=== PATIENT | male | born 2000 | race Caucasian/White ===

== ENCOUNTER 2024-02-23 22:19 | Emergency (ER) | payer SELFPAY ==
[2024-02-23 22:20] VITALS: BP 130/84; PULSE 86; RESP 18; TEMP 37; O2SAT 99; BMI 22.6
--- NOTE | 2024-02-23 22:33 | ED_ITS ---
Discharge Plan Disposition Patient Disposition: Home, Self-Care Referrals Follow up/Referrals: Provider,Referral, [Primary Care Provider] - See instructions Activity Restrictions/Add. Instructions Additional Instructions/Restrictions: Please use erythromycin ointment as discussed. Please follow-up with an eye doctor.. Please return to the emergency department if you develop any new or worsening symptoms or become concerned for your health. Clinical Impressions Clinical Impression: Corneal abrasion Qualifiers: Encounter type: initial encounter Laterality: right Qualified Code(s): S05.01XA - Injury of conjunctiva and corneal abrasion without foreign body, right eye, initial encounter Print Language Print Language: Greenlandic Discharge ED Provider: Edwardo Coronado General Adult HPI <Weston Cedeno MD - Last Filed: 02/23/24 22:42> General Chief complaint: Eye Problems Stated complaint: AO 02/22/24 1430 FB right eye Time Seen by Provider: 02/23/24 22:33 History of Present Illness HPI narrative: Patient is a 23-year-old with no past medical history presenting for right eye pain. Patient said that yesterday he was using a nail gun and felt a piece of the copper from one of the nails hit him in the right eye. Patient said when he went home he tried to get all the pieces out with a Q-tip but still feels like he has a foreign body in his eye. Patient said that he has photophobia when he looks into the light and has some blurry vision. Patient does not wear contacts, has been afebrile, denies other injury and said that his left eye has no pain or foreign body sensation. Related Data Allergies Allergy/AdvReac Type Severity Reaction Status Date / Time No Known Allergies Allergy Verified 02/23/24 22:44 PFSH <Weston Cedeno MD - Last Filed: 02/23/24 22:42> [facility] Disclaimer: The information contained in this section may have been updated after the patient was seen, as this information can be updated by other users. Social History Smoking Status: Current every day smoker alcohol intake: never current occupational status: employed Travel in the last 8 weeks: None <Edwardo Coronado MD - Last Filed: 02/24/24 01:25> ROS Obtained: Yes All systems reviewed & no additional complaints except as documented Physical Exam <Edwardo Coronado MD - Last Filed: 02/24/24 01:25> General General appearance: alert and in no apparent distress Head Head exam: atraumatic and normocephalic Eye Eye exam: Present PERRL, EOMI and conjunctival injection (No obvious corneal foreign body noted prior to staining. After staining there is an area of fluorescein uptake over the cornea, negative Jany sign, no obvious corneal foreign body) ENT ENT exam: Present normal oropharynx and normal external ear exam Neck Neck exam: Present normal inspection and full ROM Chest Chest inspection: Present normal inspection and symmetric chest wall rise; Absent tenderness Respiratory Respiratory exam: Present normal lung sounds bilaterally; Absent respiratory distress Cardiovascular Cardiovascular exam: Present regular rate and normal rhythm Abdominal Exam Abdominal exam: Present soft; Absent distention, tenderness or guarding Extremities Exam Extremities exam: Present normal inspection; Absent edema or joint swelling Back Exam Back exam: Present normal inspection; Absent tenderness Neurological Exam Neurological exam: Present alert and oriented X3; Absent motor sensory deficit Psychiatric Psychiatric exam: Present normal affect and normal mood Skin Skin exam: Present warm, dry and normal color Lymphatic Lymphatic Findings: no adenopathy Medical Decision Making <Weston Cedeno MD - Last Filed: 02/23/24 22:42> Medical Records Screening: Per USPSTF and CDC recommendations, given the prevalence of disease in our region, it is our hospital?s policy to screen for HIV and viral Hepatitis for all patients aged 18 and over and those with ongoing risk factors. Vital Signs: 02/23/24 22:20 02/23/24 23:34 Temperature 98.6 F 98.2 F Temperature Source Oral Oral Pulse Rate 61 Pulse Rate [Left] 86 Respiratory Rate 18 16 Blood Pressure 121/72 Blood Pressure [Right Arm] 130/84 Blood Pressure Mean [Right Arm] 99 02 Sat by Pulse Oximetry 99 Oxygen Delivery Method Room Air Room Air Orders (Tests/Meds): ED MEDICATIONS Discontinued Medications Generic Name Dose Route Start Last Admin Trade Name Freq PRN Reason Stop Dose Admin Fluorescein Sodium 1 mg 02/23/24 22:41 Fluorescein Sodium 1mg Strip OP 02/23/24 22:42 ONCE ONE Tetracaine HCl 0 ml 02/23/24 22:41 Tetracaine 0.5% Opth Lilliam 15ml OP 02/23/24 22:42 ONCE ONE <Edwardo Coronado MD - Last Filed: 02/24/24 01:25> Medical Records Medical records reviewed: Yes I reviewed the patient's medical records. Ashwin Inquiry Pt receiving controlled substance: No Ashwin was queried for this patient: No Vital Signs: 02/23/24 22:20 02/23/24 23:34 Temperature 98.6 F 98.2 F Temperature Source Oral Oral Pulse Rate 61 Pulse Rate [Left] 86 Respiratory Rate 18 16 Blood Pressure 121/72 Blood Pressure [Right Arm] 130/84 Blood Pressure Mean [Right Arm] 99 02 Sat by Pulse Oximetry 99 Oxygen Delivery Method Room Air Room Air Lab Data Lab results reviewed: Yes I reviewed the patient's lab results. Orders (Tests/Meds): ED MEDICATIONS Discontinued Medications Generic Name Dose Route Start Last Admin Trade Name Freq PRN Reason Stop Dose Admin Fluorescein Sodium 1 mg 02/23/24 22:41 Fluorescein Sodium 1mg Strip OP 02/23/24 22:42 ONCE ONE Tetracaine HCl 0 ml 02/23/24 22:41 Tetracaine 0.5% Opth Lilliam 15ml OP 02/23/24 22:42 ONCE ONE Medical Decision Narrative: 23-year-old male without significant past medical history presents for concern for right eye foreign body. Yesterday. He washed it out and used a Q-tip to get it out but he is concerned it could still be there, he is still having eye pain.. History was obtained via interactive discussion with patient. On arrival, patient is [afebrile, hemodynamically stable, satting appropriately, alert, oriented x4, GCS 15], moving all extremities spontaneously. Full physical exam performed and significant for eye findings as above, no obvious foreign body, stain consistent with corneal abrasion. Differential includes but is not limited to ocular foreign body, corneal foreign body, corneal abrasion, corneal ulcer. Patient was given tetracaine, fluorescein stained, and given erythromycin ointment for treatment of corneal abrasion. Patient was given instructions regarding symptomatic care and encouraged follow-up with eye doctor, especially if symptoms do not rapidly improve. Procedures <Edwardo Coronado MD - Last Filed: 02/24/24 01:25> Risk/Benefits of Procedure(s) Were Explained: Yes Critical Care <Edwardo Coronado MD - Last Filed: 02/24/24 01:25> Critical Care Time Critical Care Time: No
[2024-02-23 23:34] VITALS: BP 121/72; PULSE 61; RESP 16; TEMP 36.8; O2SAT 99
== END 2024-02-23 23:40 | disposition home or self-care (01) ==
PROVIDERS: Emergency Provider Emergency Medicine
DX: S05.01XA Injury of conjunctiva and corneal abrasion without foreign body, right eye, initial encounter (principal); H57.11 Ocular pain, right eye; H53.149 Visual discomfort, unspecified; X58.XXXA Exposure to other specified factors, initial encounter; Y93.9 Activity, unspecified
CPT/HCPCS: 99283

== ENCOUNTER 2024-04-26 09:17 | Emergency (ER) | payer OTHER, SELFPAY ==
[2024-04-26 09:18] VITALS: BP 142/86; PULSE 83; RESP 16; TEMP 36.9; O2SAT 100; BMI 23.3
[2024-04-26 09:30] VITALS: BP 133/83; PULSE 86; O2SAT 100
[2024-04-26] MEDS: IBUPROFEN 600 MG TABLET PO (09:30)
[2024-04-26] MEDS: ACETAMINOPHEN 500MG TAB 1000 MG PO (09:30)
[2024-04-26] MEDS: DEXAMETHASONE 4MG TABLET 10 MG PO (09:30)
[2024-04-26] MEDS: ONDANSETRON 4MG ODT 4 MG SL (09:30)
--- NOTE | 2024-04-26 09:37 | ED_ITS ---
Discharge Plan Disposition Patient Disposition: Eloped Chief Complaint: Upper Respiratory Infection Prescriptions Prescriptions: No Action No Known Home Medications Referrals Follow up/Referrals: Provider,MD Tj [Primary Care Provider] - See instructions Clinical Impressions Clinical Impression: Eloped from emergency department, Influenza A Print Language Print Language: Taiwanese Discharge ED Provider: Pa Charles General Adult HPI General Chief complaint: Upper Respiratory Infection Stated complaint: cough cold sweats vomiting diarriah Time Seen by Provider: 04/26/24 09:18 Mode of Arrival: Ambulatory Source of Information: Patient Limitations: No Limitations Description of Symptoms (Recalled from ER Triage Doc. by RN): Patient reports nausea, vomiting and diarrhea for two days. History of Present Illness HPI narrative: Please note that above description of symptoms, in this electronic medical record under categorization of recalled from ER triage doctor by RN are reflective of an initial nursing assessment, however, is not reflective of my full history and physical exam that was personally taken and clarified. Consequentially, this preceding description of symptoms, which may include the patient's categorized chief complaint in the EMR, do not reflect my personal clinical impression, and the ultimate description of history of present illness and patient stated complaints should be deferred to this section of the note. Unless stated otherwise or congruent with this section of the note, additional signs, symptoms, or incongruence should be interpreted as inaccurate with my clinical impression. Related Data Home Medications ?Medication ?Instructions ?Recorded ?Confirmed No Known Home Medications 04/26/24 04/26/24 Allergies Allergy/AdvReac Type Severity Reaction Status Date / Time oseltamivir (From Tamiflu) Allergy Hives Verified 04/26/24 09:28 [facility] Disclaimer: The information contained in this section may have been updated after the patient was seen, as this information can be updated by other users. Social History (Updated 02/24/24 @ 01:25 by Edwardo Coronado MD) Smoking Status: Unknown if ever smoked alcohol intake: never current occupational status: employed Travel in the last 8 weeks: None Have you lived/traveled outside [place] in past 30 days?: No Contact w/someone who lives/traveled outside [place] past 30 days?: No Exposure to someone with infectious disease in past 14 days?: No Do you have a fever (greater than 100.4 F or 38 C)?: No Have you tested positive for COVID-19: No Exposed to someone with COVID-19 in past 14 days?: No Do you have a sore throat?: No Do you have a cough?: No Do you have any weakness?: No Do you have any diarrhea?: Yes Are you experiencing any unusual bleeding?: No Do you have any muscle aches/pain?: Yes Do you have any abdominal pain?: No Are you experiencing loss of taste or smell?: No ROS Obtained: Yes All systems reviewed & no additional complaints except as documented Physical Exam General General appearance: alert Head Head exam: atraumatic and normocephalic Eye Eye exam: Present normal appearance, PERRL and EOMI Neck Neck exam: Present normal inspection, full ROM and trachea midline Respiratory Respiratory exam: Present normal lung sounds bilaterally; Absent respiratory distress, wheezes, stridor, accessory muscle use or prolonged expiratory phase Cardiovascular Cardiovascular exam: Present regular rate, normal rhythm and other (Pulses equal symmetric in upper and lower extremities) Abdominal Exam Abdominal exam: Present soft; Absent distention, tenderness or pulsatile mass Extremities Exam Extremities exam: Absent edema Neurological Exam Neurological exam: Present alert, oriented X3 and CN II-XII intact; Absent motor sensory deficit Skin Skin exam: Present warm, diaphoresis and pallor; Absent erythema Medical Decision Making Medical Records Medical records reviewed: Yes I reviewed the patient's medical records. Screening: Per USPSTF and CDC recommendations, given the prevalence of disease in our region, it is our hospital?s policy to screen for HIV and viral Hepatitis for all patients aged 18 and over and those with ongoing risk factors. Ashwin Inquiry Pt receiving controlled substance: No Ashwin was queried for this patient: No Vital Signs: 04/26/24 09:18 04/26/24 09:30 04/26/24 10:13 Temperature 98.5 F 98.5 F Temperature Source Oral Oral Pulse Rate 86 78 Pulse Rate [Radial] 83 Respiratory Rate 16 16 Blood Pressure 133/83 133/84 Blood Pressure [Right Arm] 142/86 H Blood Pressure Mean [Right Arm] 104 Blood Pressure Source Automatic Cuff Blood Pressure Source [Right Arm] Automatic Cuff Blood Pressure Position Sitting Blood Pressure Position [Right Arm] Sitting 02 Sat by Pulse Oximetry 100 100 Oxygen Delivery Method Room Air Room Air Room Air Lab Data Lab Results 04/26/24 09:37: SARS-CoV-2 (PCR) Not detected, Influenza A Untype (PCR) Detected A, Influenza Type B (PCR) Not detected Orders (Tests/Meds): ED MEDICATIONS Discontinued Medications Generic Name Dose Route Start Last Admin Trade Name Petey PRN Reason Stop Dose Admin Acetaminophen 1,000 mg 04/26/24 09:18 04/26/24 09:30 Acetaminophen 500mg Tab PO 04/26/24 09:19 1,000 mg ONCE ONE Administration Dexamethasone 10 mg 04/26/24 09:18 04/26/24 09:30 Dexamethasone 4mg Tablet PO 04/26/24 09:19 10 mg ONCE ONE Administration Ibuprofen 600 mg 04/26/24 09:18 04/26/24 09:30 Ibuprofen 600 Mg Tablet PO 04/26/24 09:19 600 mg ONCE ONE Administration Ondansetron HCl 4 mg 04/26/24 09:18 04/26/24 09:30 Ondansetron 4mg Odt SL 04/26/24 09:19 4 mg ONCE ONE Administration ORDERS Category Date Time Status Rapid PCR Covid and Flu A/B Stat Lab 04/26/24 09:37 Completed Medical Decision Narrative: 23-year-old unpleasant male history of ulcerative colitis presenting with multiple complaints. He states that 3 days ago he started having fever. Since that time he developed vomiting, diarrhea, body aches. Sick contacts with the flu. States that this does not feel anything like his ulcerative colitis, is not having abdominal pain. Vomiting is nonbloody, nonbilious, diarrhea without tissue, mucus, blood. Has not taken any medications for this. History was obtained via conversation with patient and significant other. On arrival, patient hemodynamically stable, alert, oriented x4, appropriate, GCS 15, moving all extremities spontaneously, pupils equal and reactive to light. Full physical exam performed and significant for unpleasant male who is in no acute distress. He is pale and diaphoretic, but warm to the touch. Likely just broke fever. Lungs are clear, nontachycardic, normotensive and speaking in full sentences. Differential includes influenza, other viral syndrome, less likely be myocarditis, pericarditis, pneumonia, sepsis given vital sign stability and well appearance otherwise. Patient placed on continuous cardiac monitoring and continuous pulse ox with initial blood pressure 142/86, heart rate 83, saturation 100% on room air. Patient was given ibuprofen, Tylenol, Zofran, Decadron for symptomatic ma nagement and correction of underlying abnormalities. Workup independently interpreted and significant for influenza A swab. Chest x-ray imaging was considered, but not deemed necessary. Lungs are clear, normotensive, nontachycardic, saturating at 100% on room air and nontachypneic. Hematologic workup was considered, but deemed unnecessary for the same reasons. As well as walking and update patient, patient eloped. [employer] disclaimer Much of this encounter note is an electronic rolling attendant spoken language to printed text. Electronic rolling attendant of the spoken language may permit errors. Although I have reviewed the note, some errors may still exist. Critical Care Critical Care Time Critical Care Time: No
[2024-04-26 09:44] LABS: Coronavirus 19, PCR Not Detected (NotDetected); Influenza B, PCR Not Detected (NotDetected)
[2024-04-26 10:09] LABS: Influenza A, PCR Detected (NotDetected)
[2024-04-26 10:13] VITALS: BP 133/84; PULSE 78; RESP 16; TEMP 36.9; O2SAT 100
--- NOTE | 2024-04-26 10:15 | PC.NURSE ---
Patient cussing in room. Walked out of the emergency room without talking to staff.
== END 2024-04-26 10:15 | disposition left against medical advice (07) ==
PROVIDERS: Emergency Provider Emergency Medicine
DX: J10.1 Influenza due to other identified influenza virus with other respiratory manifestations (principal); R11.2 Nausea with vomiting, unspecified; R19.7 Diarrhea, unspecified; Z53.20 Procedure and treatment not carried out because of patient's decision for unspecified reasons
CPT/HCPCS: 87636; 99283; J8540; Q0162